=== PATIENT | male | born 1980 | race Caucasian/White ===

== ENCOUNTER 2021-08-29 10:32 | Emergency (ER) | payer OTHER ==
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
[2021-08-29 11:53] VITALS: BP 133/87; TEMP 98.3; O2SAT 100
== END 2021-08-29 11:49 | disposition home or self-care (01) ==
LOC: ER 10:32
DX: R51.9 Headache, unspecified (principal); Y04.2XXA Assault by strike against or bumped into by another person, initial encounter; Y92.89 Other specified places as the place of occurrence of the external cause
CPT/HCPCS: 70486; 76377; 99282

== ENCOUNTER 2022-08-08 19:40 | Emergency (ER) | payer OTHER ==
[2022-08-08] MEDS ORDERED: LORAZEPAM 1 MG TABLET ONE (20:34)
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
--- NOTE | 2022-08-08 21:25 | ER ---
Nurse's Notes [facility] Name: Crescencio Vergara Age: 41 yrs Sex: Male : 1980 Arrival Date: 08/08/2022 Time: 19:43 Bed DIS2 Private MD: Diagnosis: Dyspnea Presentation: 08/08 20:08 Chief complaint: Patient states: Pt feels unable to sit still, shortness of breathe, jh5 tingling in hands, diarrhea.; feels better when he moves around/ walks. Coronavirus screen: Vaccine status: Client denies travel out of the [place] in the last 14 days. Ebola Screen: Patient negative for fever greater than or equal to 101.5 degrees Fahrenheit, and additional compatible Ebola Virus Disease symptoms Patient denies exposure to infectious person. Patient denies travel to an Ebola-affected area in the 21 days before illness onset. Initial Sepsis Screen: Does the patient meet any 2 criteria? No. Patient's initial sepsis screen is negative. Does the patient have a suspected source of infection? No. Patient's initial sepsis screen is negative. Risk Assessment: Do you want to hurt yourself or someone else? Patient reports no desire to harm self or others. Onset of symptoms was August 08, 2022. 20:08 Method Of Arrival: Ambulatory [facility] 20:08 Acuity: GIGI 3 jh5 Triage Assessment: 20:11 General: Appears in no apparent distress. slender, well groomed, Behavior is jh5 cooperative, anxious. Pain: Denies pain. Historical: - Allergies: 21:45 No Known Allergies; kl - PMHx: 20:11 None; [facility] - Immunization history:: Adult Immunizations up to date. - Social history:: Smoking status: Patient denies any tobacco usage or history of. Screenin:28 Abuse screen: Denies threats or abuse. Nutritional screening: No deficits noted. kl Tuberculosis screening: No symptoms or risk factors identified. Fall Risk None identified. Assessment: 20:27 General: Appears uncomfortable, slender, well groomed, emaciated, Behavior is anxious. kl Pain: Denies pain. Neuro: No deficits noted. Cardiovascular: No deficits noted. Respiratory: No deficits noted. Airway is patent Trachea midline Respiratory effort is even, unlabored, Respiratory pattern is regular. GI: No deficits noted. No signs and/or symptoms were reported involving the gastrointestinal system. : No deficits noted. No signs and/or symptoms were reported regarding the genitourinary system. EENT: No deficits noted. No signs and/or symptoms were reported regarding the EENT system. Derm: No deficits noted. No signs and/or symptoms reported regarding the dermatologic system. Musculoskeletal: No deficits noted. 21:20 Reassessment: Patient appears in no apparent distress at this time. Patient and/or kl family updated on plan of care and expected duration. Pain level reassessed. Patient is alert, oriented x 3, equal unlabored respirations, skin warm/dry/pink. Patient states feeling better. Vital Signs: 20:08 BP 132 / 92; Pulse 89; Resp 18; Temp 98.3; Pulse Ox 100% ; Weight 81.65 kg; Height 6 jh5 ft. 2 in. (187.96 cm); Pain 0/10; 20:08 Body Mass Index 23.11 (81.65 kg, 187.96 cm) 5 ED Course: 19:43 Patient arrived in ED. bp1 20:11 Triage completed. jh5 20:11 Arm band placed on right wrist. 5 20:15 Richard Yousif MD is Attending Physician. kdr 20:17 Billy Loya RN is Primary Nurse. as6 20:21 Shlomo Antony PA is PHCP. [facility] 20:28 No provider procedures requiring assistance completed. Patient did not have IV access kl during this emergency room visit. 21:45 Patient has correct armband on for positive identification. kl Administered Medications: 20:27 Drug: Ativan (LORazepam) 1 mg Route: PO; 21:44 Follow up: Response: Marked relief of symptoms 21:35 Drug: hydrOXYzine 25 mg Route: PO; 21:44 Follow up: Response: No adverse reaction Medication: 21:45 VIS not applicable for this client. Outcome: 21:25 [address] ordered by . [facility] 21:45 Discharged to home ambulatory. 21:45 Condition: good 21:45 Discharge instructions given to patient, Instructed on discharge instructions, follow up and referral plans. medication usage, Demonstrated understanding of instructions, follow-up care, medications. 21:46 Patient left the ED. Signatures: Jayne Gutierres RN RN Richard Singh MD MD kdr Mickail, Joel, PA PA jmm Paniauga, Brittany bp1 Rees, Jessica, RN RN jh5 Billy Loya RN RN as6
[2022-08-08] MEDS ORDERED: hydrOXYzine HCL 25 MG TAB ONE (21:50)
[2022-08-09 11:38] VITALS: BP 132/92; TEMP 98.3; O2SAT 100
== END 2022-08-08 21:46 | disposition home or self-care (01) ==
LOC: ER 19:40
DX: R06.00 Dyspnea, unspecified (principal)
CPT/HCPCS: 99283